=== PATIENT | male | born 2000 | race Caucasian/White ===

== ENCOUNTER 2022-08-08 12:36 | Emergency (ER) | payer MEDICAID ==
[~2022-08-08] VITALS: Ht 159.3 cm; Wt 85.3 kg
[2022-08-08 12:40] VITALS: BP 118/74
--- NOTE | 2022-08-08 12:50 | NUR ---
PT AMB TO BED 4.
--- NOTE | 2022-08-08 13:19 | NUR ---
in [facility] bibs for llq abd pain 4/10 x 4 days. denies n,v,d,fever, dysuria, hematuria. aao x4. reps even and nonlabored. vss. ambulatory
[2022-08-08] MEDS ORDERED: IBUPROFEN 600 MG TAB PO ONE (14:25)
[2022-08-08] MEDS ORDERED: ACETAMINOPHEN EXTRA STRENGTH 500 MG TAB PO ONE (14:25)
[2022-08-08 14:40] LABS: EOSINOPHILS # (AUTO) 0.6 K/uL (0-0.4); EOSINOPHILS % (AUTO) 7.2 % (0.0-4.0); HEMATOCRIT 40.6 % (36-52); HEMOGLOBIN 13.9 g/dL (12.0-18.0); LYMPHOCYTES # (AUTO) 1.9 K/uL (2.0-11.5); LYMPHOCYTES % (AUTO) 23.5 % (20.5-51.1); MEAN CORPUSCULAR HEMOGLOBIN 30 pg (27-31); MEAN CORPUSCULAR HGB CONC 34 g/dL (33-37); MEAN CORPUSCULAR VOLUME 86.5 fL (80-94); MONOCYTES % (AUTO) 12.4 % (1.7-9.3); NEUTROPHILS # (AUTO) 4.5 K/uL (1.8-7.7); NEUTROPHILS % (AUTO) 56.9 % (42.2-75.2); PLATELET COUNT (AUTO) 268 K/uL (140-450); RED CELL DISTRIBUTION WIDTH 13.2 % (11.6-13.7)
[2022-08-08 14:57] LABS: ALBUMIN 3.6 g/dL (3.4-5.0); ANION GAP 11.6 (8-16); POTASSIUM 4.6 mmol/L (3.5-5.1); TOTAL BILIRUBIN 0.3 mg/dL (0.0-1.0)
[2022-08-08] MEDS ORDERED: IBUP-2213 PO (16:01)
[2022-08-08] MEDS ORDERED: ACET-10509 PO (16:01)
[2022-08-08 16:15] VITALS: BP 118/76
--- NOTE | 2022-08-08 16:16 | NUR ---
Patient discharged with v/s stable. Written and verbal after care instructions given and explained. Patient alert, oriented and verbalized understanding of instructions. Ambulatory with steady gait. All questions addressed prior to discharge. ID band removed. Patient advised to follow up with PMD. Rx of motrin and tylenol given. Patient educated on indication of medication including possible reaction and side effects. Opportunity to ask questions provided and answered.
== END 2022-08-08 16:16 | disposition home or self-care (01) ==
LOC: MED 12:36
DX: K63.89 Other specified diseases of intestine (principal); Z72.89 Other problems related to lifestyle
CPT/HCPCS: 36415; 80053; 81002; 85025; 99284